=== PATIENT | female | born 1990 | race Caucasian/White ===

== ENCOUNTER 2016-10-25 22:11 | Emergency (ER) | payer MEDICAID ==
[~2016-10-25] VITALS: Ht 165.1 cm; Wt 84.1 kg
[2016-10-25 22:17] VITALS: Ht 165.1 cm; Wt 84.1 kg
[2016-10-26] MEDS ORDERED: HYDROCODONE/APAP (5/325) TAB PO ONE
[2016-10-26] MEDS ORDERED: ACETAMINOPHEN 325 MG TAB PO ONE
[2016-10-26] MEDS ORDERED: CEFTRIAXONE 1 GM INJ IM ONE
[2016-10-26] MEDS ORDERED: CEPH500C PO (00:44)
[2016-10-26] MEDS ORDERED: IBUP-1542 PO (00:45)
[2016-10-26] MEDS ORDERED: SULF1TAB31 PO (00:45)
[2016-10-26] MEDS ORDERED: TYL500 PO (00:45)
--- NOTE | 2016-10-26 00:51 | ERD ---
ER Documentation Chief Complaint Date/Time DATE: 10/26/16 TIME: 00:47 Chief Complaint ABSCESS TO BACK X5 DAYS. FEVER X3 DAYS. C/O PAIN HPI This is a 26-year-old female presents to the ER with an area of redness and pain that started 5 days ago. Patient states she scratched the area and since then he became very red and more painful. Patient developed a fever 3 days ago. Pain is described as throbbing in quality it is nonradiating. Patient has been taking [id number] pain medications however it has not worked. She is also taking tetracycline which she bought from a neighbor. Patient denies any numbness or tingling of the area. ROS 12 point review of systems was done, all negative except per HPI. Medications Home Meds Active Scripts Acetaminophen* (Tylenol*) 500 Mg Tab, 500 MG PO Q4H Y for MILD PAIN LEVEL 1-3 for 3 Days, TAB Prov:ZENOBIA THOMAS 10/26/16 Ibuprofen* (Motrin*) 600 Mg Tab, 600 MG PO Q6, #30 TAB Prov:ZENOBIA THOMAS 10/26/16 Sulfamethoxazole/Trimethoprim* (Bactrim Ds* Tablet) 1 Each Tablet, 1 TAB PO BID for 7 Days, #14 TAB Prov:ZENOBIA THOMAS 10/26/16 Cephalexin* (Cephalexin*) 500 Mg Capsule, 500 MG PO BID for 7 Days, #14 CAP Prov:ZENOBIA THOMAS 10/26/16 Reported Medications [None] No Conflict Check 01/21/15 Allergies Allergies: Coded Allergies: No Known Allergy (Unverified , 10/25/16) PMhx/Soc History of Surgery: No (DENIES MEDICAL ANS SURGICAL HX.) Anesthesia Reaction: No Hx Neurological Disorder: No Hx Respiratory Disorders: No Hx Cardiac Disorders: No Hx Psychiatric Problems: No Hx Miscellaneous Medical Probl: No Hx Alcohol Use: Yes (SOMETIMES) Hx Substance Use: No Hx Tobacco Use: No Smoking Status: Never smoker Physical Exam Vitals Vital Signs Date Time Temp Pulse Resp B/P Pulse Ox O2 Delivery O2 Flow Rate FiO2 10/25/16 22:17 100.4 119 20 141/94 97 Physical Exam GENERAL: The patient is well developed and appropriate for usual state of health , in no apparent distress. HEENT: Atraumatic. CHEST: Clear to auscultation bilaterally. There are no rales, wheezes or rhonchi. HEART: Regular rate and rhythm. No murmurs, clicks, rubs or gallops. NEURO: Alert and oriented. SKIN: There is a 5 x 6 cm area of erythema to the upper back. Area is warm to the touch and tender to palpation. No evidence of masses or fluctuance. Results 24 hrs Current Medications Medications (Trade) Dose Ordered Sig/Colin Route PRN Reason Start Time Stop Time Status Last Admin Dose Admin Acetaminophen/ Hydrocodone Bitart (Surveyor (5/325)) 1 tab ONCE ONCE PO 10/26/16 00:00 10/26/16 00:05 DC 10/26/16 00:19 Acetaminophen (Tylenol Tab) 650 mg ONCE ONCE PO 10/26/16 00:00 10/26/16 00:05 DC 10/26/16 00:19 Ceftriaxone Sodium (Rocephin) 1 gm ONCE ONCE IM 10/26/16 00:00 10/26/16 00:05 DC 10/26/16 00:18 Procedures/MDM This is a 18-year-old female presents to the ER with redness and pain to her back associated with fevers. Patient does have cellulitis of the back. At this time there is no evidence of abscess as there is no area of fluctuance. Suspicion for deep space infection is low. Patient did have a low-grade fever in the ER which was treated with Tylenol. She was given Surveyor for her pain. Patient had a total of 975 mg of Tylenol. Patient was given a shot of Rocephin in the ER without any complications. She will be sent home with Bactrim and Keflex. She was told to discontinue tetracycline. Patient will also be sent with ibuprofen and with Tylenol. Patient was told to return to ER in 2 days for recheck. Should return to ER sooner if symptoms worsen. She also has follow-up with her primary care doctor within 1-2 days. I shared my medical decision making with the patient understands and agrees with plan. Departure Diagnosis: Primary Impression: Cellulitis Condition: Stable Patient Instructions: Cellulitis Additional Instructions: Return to this facility in 2 DAYS for a follow-up exam.Return sooner if your condition worsens. ZENOBIA THOMAS October 26, 2016 00:51
== END 2016-10-26 00:54 | disposition home or self-care (01) ==
LOC: FTE 22:11
DX: L03.312 Cellulitis of back [any part except buttock and flank] (principal)
CPT/HCPCS: 96372; J0696; Z7502; Z7610

== ENCOUNTER 2017-08-04 17:10 | Emergency (ER) | END 2017-08-04 19:56 | disposition home or self-care (01) ==